=== PATIENT | female | born 1995 | race Hispanic/Latino ===

== ENCOUNTER 2019-05-13 21:38 | Emergency (ER) | payer OTHER ==
[2019-05-13 22:12] LABS: BASOPHILS % (AUTO) 0.7 % (0.0-5.0); EOSINOPHILS % (AUTO) 1.9 % (0.0-8.0); HEMATOCRIT 38.5 % (36-48); LYMPHOCYTES % (AUTO) 33.3 % (21.0-51.0); MEAN CORPUSCULAR HEMOGLOBIN 26.7 pg (27.0-33.0); MEAN CORPUSCULAR HGB CONC 33.7 g/dL (32.0-36.0); MEAN CORPUSCULAR VOLUME 79.3 fL (79-99); MONOCYTES % (AUTO) 5.3 % (3.0-13.0); NEUTROPHILS % (AUTO) 58.8 % (40.0-77.0); PLATELET COUNT (AUTO) 287 K/uL (130-400); RED BLOOD CELL COUNT(AUTO) 4.86 MIL/uL (4.00-5.50); RED CELL DISTRIBUTION WIDTH 14.6 % (11.0-15.5); WHITE BLOOD COUNT (AUTO) 11.2 K/uL (4.8-10.8)
== END 2019-05-13 22:44 | disposition home or self-care (01) ==
LOC: EDH 21:38
DX: N92.1 Excessive and frequent menstruation with irregular cycle (principal)
CPT/HCPCS: 36415; 84702; 85025; 86900; 86901

== ENCOUNTER 2019-12-12 13:23 | Emergency (ER) | payer OTHER ==
[2019-12-12] MEDS ORDERED: METHYLPREDNISOLONE SOD SUCC 125MG/2ML VIAL ONE (14:08)
[2019-12-12] MEDS ORDERED: IPRATROPIUM/ALBUTEROL SULFATE 3 ML SOLUTION IH ONE (14:16)
== END 2019-12-12 15:38 | disposition home or self-care (01) ==
LOC: EDH 13:23
DX: J20.9 Acute bronchitis, unspecified (principal); J11.1 Influenza due to unidentified influenza virus with other respiratory manifestations; J45.909 Unspecified asthma, uncomplicated
CPT/HCPCS: 71045; 87804 ×2; 94640; 96372; 99285; J2930

== ENCOUNTER 2020-01-01 23:33 | Emergency (ER) | payer OTHER ==
[2020-01-02] MEDS ORDERED: KETOROLAC TROMETHAMINE 60 MG/2 ML VIAL ONE (00:27)
[2020-01-02] MEDS ORDERED: CEFTRIAXONE SODIUM 1 GM ONE (00:27)
[2020-01-02] MEDS ORDERED: LIDOCAINE HCL-MPF 1% 2ML VIAL ONE (00:27)
== END 2020-01-02 00:58 | disposition home or self-care (01) ==
LOC: EDH 23:33
DX: L03.317 Cellulitis of buttock (principal); J45.909 Unspecified asthma, uncomplicated; Z79.899 Other long term (current) drug therapy
CPT/HCPCS: 81025; 82948; 96372 ×2; 99284; J0696; J1885; J3490

== ENCOUNTER 2020-06-23 14:45 | Emergency (ER) | payer OTHER ==
[2020-06-23] MEDS ORDERED: KETOROLAC TROMETHAMINE 60 MG/2 ML VIAL ONE (15:30)
[2020-06-23] MEDS ORDERED: DEXAMETHASONE SOD PHOSPHATE 10MG/ML 1ML VIAL ONE (15:30)
[2020-06-23 16:25] LABS: HCG,QUAL RESULT NEGATIVE (NEGATIVE)
[2020-06-23 16:27] LABS: AMPHET/METH SCREEN,URINE NEGATIVE (NEGATIVE); BARBITURATE SCREEN, URINE NEGATIVE (NEGATIVE); BENZODIAZEPINES SCREEN,URINE NEGATIVE (NEGATIVE); CANNABINOID SCREEN,URINE NEGATIVE (NEGATIVE); COCAINE SCREEN,URINE NEGATIVE (NEGATIVE); OPIATE SCREEN,URINE NEGATIVE (NEGATIVE); PHENCYCLIDINE SCREEN,URINE NEGATIVE (NEGATIVE)
== END 2020-06-23 17:38 | disposition home or self-care (01) ==
LOC: EDH 14:45
DX: U07.1 COVID-19 (principal); J12.89 Other viral pneumonia; N93.8 Other specified abnormal uterine and vaginal bleeding; J45.909 Unspecified asthma, uncomplicated
CPT/HCPCS: 71045; 80305; 81025; 96372 ×2; 99284; J1100; J1885; U0003

== ENCOUNTER 2023-09-30 09:40 | Emergency (ER) | payer BC, OTHER ==
[~2023-09-30] VITALS: Ht 165.1 cm; Wt 148.8 kg
[2023-09-30 11:36] LABS: RAPID GROUP A STREP negative (NEGATIVE)
[2023-09-30 11:45] LABS: SARS-CoV-2, RNA, NAAT NEGATIVE SARS CoV-2 (NEGATIVE)
[2023-09-30 11:47] LABS: INFLUENZA TYPE A Negative For Type A (NEGATIVE); INFLUENZA TYPE B Negative For Type B (NEGATIVE)
[2023-09-30 11:52] VITALS: BP 114/55; PULSE 90; RESP 19; O2SAT 98
== END 2023-09-30 12:16 | disposition home or self-care (01) ==
LOC: EDH 09:40
DX: J06.9 Acute upper respiratory infection, unspecified (principal); R05.9 Cough, unspecified; J45.909 Unspecified asthma, uncomplicated; Z90.49 Acquired absence of other specified parts of digestive tract; Z20.822 Contact with and (suspected) exposure to COVID-19
CPT/HCPCS: 99283; 87635; 87880; 87804 ×2; C9803

== ENCOUNTER 2023-11-12 18:47 | Emergency (ER) | payer BC, OTHER ==
[~2023-11-12] VITALS: Ht 165.1 cm; Wt 148.8 kg
[2023-11-12 19:54] LABS: SARS-CoV-2, RNA, NAAT NEGATIVE SARS CoV-2 (NEGATIVE)
[2023-11-12 20:01] LABS: INFLUENZA TYPE A Negative For Type A (NEGATIVE); INFLUENZA TYPE B Negative For Type B (NEGATIVE)
[2023-11-12 20:11] LABS: RAPID GROUP A STREP NEGATIVE (NEGATIVE)
[2023-11-12] MEDS ORDERED: ALBU90AE2 IH (22:30)
[2023-11-12] MEDS ORDERED: OSEL75 PO (22:30)
[2023-11-12] MEDS ORDERED: BROM118S48 PO (22:30)
[2023-11-12] MEDS ORDERED: BENZ200C53 PO (22:30)
[2023-11-12] MEDS ORDERED: GUAI400T94 PO (23:37)
[2023-11-12 23:45] VITALS: BP 138/74; PULSE 98; RESP 18; O2SAT 98
== END 2023-11-12 23:55 | disposition home or self-care (01) ==
LOC: EDH 18:47
DX: J06.9 Acute upper respiratory infection, unspecified (principal); J45.909 Unspecified asthma, uncomplicated; Z90.49 Acquired absence of other specified parts of digestive tract; Z20.822 Contact with and (suspected) exposure to COVID-19
CPT/HCPCS: 99283; 71045; 87635; 87880; 87804 ×2; C9803

== ENCOUNTER 2025-05-19 18:58 | Emergency (ER) | payer BC, OTHER ==
[~2025-05-19] VITALS: Ht 165.1 cm; Wt 149.7 kg
[~2025-05-19 18:58] MED LIST: ALBU90AE3 IH; BENZ200C53 PO; BROM118S48 PO; GUAI400T94 PO; OSEL75 PO
--- NOTE | 2025-05-19 19:02 | NUR ---
PT CARE ASSUMED AT THIS TIME
[2025-05-19 19:25] LABS: IMMATURE GRANULOCYTE ABSOLUTE 0.04 K/uL (0-1); NUCLEATED RED BLOOD CELLS 0.0 % (0.0-0.19); PLATELET COUNT (AUTO) 316 K/uL (130-400); RED BLOOD CELL COUNT(AUTO) 4.67 MIL/uL (4.00-5.50); RED CELL DISTRIBUTION WIDTH 14.9 % (11.0-15.5); WHITE BLOOD COUNT (AUTO) 9.5 K/uL (4.8-10.8)
[2025-05-19 19:33] LABS: CREATININE 0.6 mg/dL (0.5-1.0); GLOMERULAR FILTR. RATE CALC 125.0 mL/min (>90); GLUCOSE,RANDOM 105.0 mg/dL (70-105); SODIUM SERUM 145.0 mmol/L (136-145); UREA NITROGEN, BLOOD 9.0 mg/dL (7-18)
[2025-05-19 19:39] LABS: CREATINE KINASE, TOTAL 85.0 U/L (21-232)
[2025-05-19 20:17] LABS: APPEARANCE,URINE CLEAR (CLEAR); GLUCOSE, URINE (UA) NEGATIVE (NEGATIVE); LEUKOCYTE ESTERASE ,URINE NEGATIVE Leu/uL (NEGATIVE); NITRATE,URINE NEGATIVE (NEGATIVE); OCCULT BLOOD,URINE SMALL (NEGATIVE)
[2025-05-19 20:19] LABS: ADD UA MICROSCOPIC YES
[2025-05-19 20:20] LABS: SQUAMOUS EPITHELIAL CELL,UR FEW /HPF (0-2)
--- NOTE | 2025-05-19 20:31 | ERN ---
ED Note History of Present Illness Stated Complaint: PALPITATIONS, HTN, CP Chief Complaint: Multiple Complaints Time Seen by MD: 19:01 Time Seen by Midlevel: 19:03 Dictation: 29-year-old female coming in with complaints of elevated blood pressure and h eadache. Patient states she has been having intermittent chest pain as well. Patient does have a history of hypertension, states she has taking her medications prescribed. Also medical history of anxiety and depression. At the time of interview patient was crying. BP at the time of triage was in the 140s. Patient states she only takes diltiazem 120 mg once a day. Allergies: Coded Allergies: No Known Drug Allergies (Unverified Allergy, Unknown, 05/13/19) Home Meds Active Scripts Guaifenesin (Guaifenesin) 400 Mg Tablet, 400 MG PO TID for 7 Days, #21 TAB Prov:NAVEEN HOLLIS [facility] 11/12/23 Albuterol Sulfate (Proair Digihaler) 90 Mcg Aer.pw.bas, 90 MCG IH TID, #1 INHALER Prov:NAVEEN HOLLIS [facility] 11/12/23 Benzonatate (Benzonatate) 200 Mg Capsule, 200 MG PO TID PRN for COUGH for 14 Days, #42 CAP Prov:NAVEEN HOLLIS [facility] 11/12/23 D-Methorphan Hb/P-Epd HCl/Bpm (Bromfed Dm Cough Syrup) 2 Mg-30 Mg-10 Mg/5 Ml Syrup, 10 ML PO Q4HPRN PRN for COUGH for 10 Days, #100 ML Prov:NAVEEN HOLLIS [facility] 11/12/23 Oseltamivir Phosphate (Tamiflu) 75 Mg Cap, 75 MG PO BID for 5 Days, #10 CAP Prov:NAVEEN HOLLIS [facility] 11/12/23 Past Medical History Past Medical History: Asthma, Hypertension Surgical History: Cholecystectomy Social History: Negative LMP: May 19, 2025 Review of System Dictation Constitutional: Negative for fever,chills, and weight loss Eyes: Negative for injury, pain,redness, and discharge ENT: Negative for injury,pain or swelling Cardiovascular: Negative for chest pain, palpitations, and edema Respiratory: Negative for shortness of breath, cough, and wheezing, Abdomen/GI: Negative for abdominal pain, nausea, vomiting, diarrhea, and constipation Back: Negative for injury and pain : Negative for injury, bleeding and discharge MS/Extremity: Negative for injury and deformity Skin: Negative for rash, and discoloration Neuro: Positive headache, no weakness, no numbness, no tingling, and no seizure Psych: Negative for suicide ideation, homicidal ideation, and hallucinations Review of Systems: was completed Initial Vital Sign VS Vital Signs Date Time Temp Pulse Resp B/P (MAP) Pulse Ox O2 Delivery O2 Flow Rate FiO2 05/19/25 18:59 97.3 93 20 193/103 98 Room Air 05/19/25 19:21 0 21 Physical Exam Dictation General: awake, alert, NAD Head/Face: Normocephalic, atraumatic Eyes: PERRL, EOMI, vision at baseline ENT: oral cavity clear, TMs clear, no signs of infection Neck: Trachea midline, supple, no nuchal rigidity Cardiovascular: RRR, normal S1/S2, No MRGs, no JVD Respiratory: CTAB, no respiratory distress, No rales or wheezes Abdomen: Soft, non-tender, non-distended, normal bowel sounds, no guarding or rebound. Skin: Warm, dry, normal turgor, no rash MS/Extremity: Pulses equal, no cyanosis, neurovascular intact, FROM Neuro: COAx4, GCS 15, strength 5/5, CN 2-12 intact, normal cerebellar exam, normal gait, Psych: Normal behavior, mood, and affect normal Results (Laboratory/Radiology) Laboratory/Radiology Laboratory Tests Test 05/19/25 19:17 05/19/25 19:50 White Blood Count 9.5 K/uL (4.8-10.8) Red Blood Count 4.67 MIL/uL (4.00-5.50) Hemoglobin 11.8 g/dL (12.0-16.0) L Hematocrit 37.0 % (36-48) Mean Corpuscular Volume 79.2 fL (79-99) Mean Corpuscular Hemoglobin 25.3 pg (27.0-33.0) L Mean Corpuscular Hemoglobin Concent 31.9 g/dL (32.0-36.0) L Red Cell Distribution Width 14.9 % (11.0-15.5) Platelet Count 316 K/uL (130-400) Mean Platelet Volume 9.5 fL (7.5-10.5) Immature Granulocyte % (Auto) 0.4 % (0-1) Neutrophils (%) (Auto) 56.2 % (40.0-77.0) Lymphocytes (%) (Auto) 35.0 % (21.0-51.0) Monocytes (%) (Auto) 6.1 % (3.0-13.0) Eosinophils (%) (Auto) 1.9 % (0.0-8.0) Basophils (%) (Auto) 0.4 % (0.0-5.0) Neutrophils # (Auto) 5.3 K/uL (1.8-7.7) Lymphocytes # (Auto) 3.3 K/uL (1.0-4.8) Monocytes # (Auto) 0.6 K/uL (0.1-1.0) Eosinophils # (Auto) 0.18 K/uL (0.00-0.70) Basophils # (Auto) 0.04 K/uL (0.00-0.20) Absolute Immature Granulocyte (auto 0.04 K/uL (0-1) Nucleated Red Blood Cells 0.0 % (0.0-0.19) Sodium Level 145 mmol/L (136-145) Potassium Level 4.1 mmol/L (3.5-5.1) Chloride Level 107 mmol/L (101-111) Carbon Dioxide Level 26 mmol/L (21-32) Blood Urea Nitrogen 9 mg/dL (7-18) Creatinine 0.6 mg/dL (0.5-1.0) Glomerular Filtration Rate Calc 125 mL/min (>90) Random Glucose 105 mg/dL (70-105) Total Calcium 9.2 mg/dL (8.5-10.1) Total Creatine Kinase 85 U/L (21-232) Troponin I High Sensitivity 4 ng/L (4-50) Human Chorionic Gonadotropin, Quant 0 mIU/mL (0-5) Urine Color LIGHT-YELLOW (YELLOW) Urine Appearance CLEAR (CLEAR) Urine pH 7.5 (5.0-8.0) Urine Specific [place] 1.016 (1.001-1.031) Urine Protein NEGATIVE mg/dL (NEGATIVE) Urine Glucose (UA) NEGATIVE mg/dL (NEGATIVE) Urine Ketones NEGATIVE mg/dL (NEGATIVE) Urine Occult Blood SMALL (NEGATIVE) H Urine Nitrate NEGATIVE (NEGATIVE) Urine Bilirubin NEGATIVE mg/dL (NEGATIVE) Urine Urobilinogen 0.2 mg/dL (0.2-1.0) Urine Leukocyte Esterase NEGATIVE Prashanth/uL Urine RBC 0-1 /HPF (0-1) Urine WBC 0-1 /HPF (0-1) Urine Squamous Epithelial Cells FEW /HPF (0-2) Urine Bacteria None /HPF (None Seen) Labs Reviewed?: Yes EKG Comment: EKGs did not 1905. Sinus rhythm at a rate of 97. No STEMI interpreted by ER MD. ED Course ED Course Orders Procedure Category Date Status Time Vital Signs Per CPOE 05/19/25 Transmitted Routine 19:00 Chest 1vw RAD 05/19/25 Taken 19:00 12 Lead Ekg Tracing- EKG 05/19/25 Logged Technical 19:00 Oxygen By Nc/Pulse Ox CPOE 05/19/25 Transmitted 19:00 Maintain Iv CPOE 05/19/25 Transmitted 19:00 Iv Insertion CPOE 05/19/25 Transmitted 19:00 Cardiac Monitoring CPOE 05/19/25 Transmitted 19:00 Pulse Oximetry With CPOE 05/19/25 Transmitted Vs And Prn 19:00 Cbc With Differential LAB 05/19/25 Complete 19:00 Activity: Br W/Brp CPOE 05/19/25 Transmitted With Assist 19:00 Creatine Kinase, Total LAB 05/19/25 Complete 19:00 Troponin I High LAB 05/19/25 Complete Sensitivity 19:00 Urinalysis Profile LAB 05/19/25 Complete 19:00 Basic Metabolic Panel LAB 05/19/25 Complete 19:00 Hcg,Quantitative LAB 05/19/25 Complete 19:06 Vital Signs Date Time Temp Pulse Resp B/P (MAP) Pulse Ox O2 Delivery O2 Flow Rate FiO2 05/19/25 20:22 78 12 142/74 99 Room Air* 0 21 05/19/25 19:21 98.2 87 11 144/79 98 Room Air* 0 21 05/19/25 18:59 97.3 93 20 193/103 98 Room Air HEART Score Response (Comments) Value History: Low suspicion (0) 0 EKG: Normal 0 Age: < 45yrs (0) 0 Risk Factors: 1-2 risk factors (+1) 1 Initial Troponin: Normal limit (0) 0 Total 1 Medical Decision Making MDM MDM: 29-year-old female coming in with complaints of elevated blood pressure and headache. Patient states she has been having intermittent chest pain as well. Patient does have a history of hypertension, states she has taking her medications prescribed. Also medical history of anxiety and depression. At the time of interview patient was crying. BP at the time of triage was in the 140s. Patient states she only takes diltiazem 120 mg once a day. Blood work unremarkable. Cardiac enzymes negative. EKGs shows normal sinus rhythm. No STEMI. Chest x-ray shows no acute findings. Discussed findings with the patient, educated on her labs and vital signs have remained stable. It discussed this could be also her anxiety. However recommended to follow up with her PCP in 1-2 days for further evaluation she might need an adjustment to her medications. Differential diagnosis: Hypertensive urgency, hypertensive emergency, anxiety Rationale: Tests considered and ordered secondary to shared decision making include: Previous outside records reviewed: Old ER visits. Risk of complication and/or morbidity or mortality of patient management: None Medications-Per medication reconciliation Need for hospitalization: Patient does not meet criteria for hospitalization. Need for emergency major/minor surgery: No There are no social concerns with this patient. Prescription drug management Prescriptions will include symptomatic care Patient's prior external medical records from other ER visits were reviewed by me as indicated. Prior testing and results from previous visits were reviewed. Prior tests were taken into account with medical decision making and resource utilization, independent historian/historians were used to obtain complete medical history. I independently interpreted the test that were performed, results were reviewed by me and considered findings on radiology if ordered. Medical management and examination interpretation discussions were had by me with other qualified healthcare professionals as indicated for the patient's care. DX & DISP Disposition: Discharge Departure Impression: Primary Impression: Hypertension Condition: Stable Additional Instructions: Follow up with your primary doctor in 1-2 days. Return to the hospital as needed. Continue taking your home medications as prescribed. Referrals: SELF,REFERRAL (PCP) Time of Disposition: 20:30 I have reviewed the case, and I agree with, Diagnosis and Plan KOLBY REDMOND NP May 19, 2025 20:31
--- NOTE | 2025-05-19 20:36 | HMCIMG ---
EXAM: CR Chest, 1 view CLINICAL HISTORY: Chest pain. COMPARISON: Chest radiograph dated 11/12/2023. FINDINGS: The lungs show no infiltrates or other acute findings. No pleural effusion or pneumothorax. The cardiomediastinal silhouette is within normal limits. No acute osseous abnormality. IMPRESSION: No acute cardiopulmonary process is evident. No interval changes. /[place]
[2025-05-19 20:41] VITALS: BP 130/79; PULSE 80; RESP 14; TEMP 98; O2SAT 99
--- NOTE | 2025-05-20 15:00 | EKG ---
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
== END 2025-05-19 20:42 | disposition home or self-care (01) ==
LOC: EDH 18:58
DX: I10 Essential (primary) hypertension (principal); J45.909 Unspecified asthma, uncomplicated; R10.2 Pelvic and perineal pain; Z90.49 Acquired absence of other specified parts of digestive tract
CPT/HCPCS: 36415; 71045; 80048; 81001; 82550; 84484; 84702; 85025; 93005; 99284